=== PATIENT | female | born 1970 | race African-American/Black ===

== ENCOUNTER 2018-05-31 07:15 | Day surgery (SDC) | payer BC ==
[~2018-05-31] VITALS: Ht 167.6 cm; Wt 86.6 kg
[2018-05-31 07:35] VITALS: BP 131/77; PULSE 78; TEMP 97.7
[2018-05-31] MEDS ORDERED: SAXENDA6 MG/ML SQ (07:35)
[2018-05-31 09:00] VITALS: BP 126/73; PULSE 75; TEMP 98.1
[2018-05-31 09:15] VITALS: BP 117/75; PULSE 73
[2018-05-31 09:30] VITALS: BP 116/73; PULSE 66
== END 2018-05-31 09:45 | disposition home or self-care (01) ==
LOC: SDCO 07:15
DX: Z12.11 Encounter for screening for malignant neoplasm of colon (principal); K64.4 Residual hemorrhoidal skin tags; K92.1 Melena; F41.9 Anxiety disorder, unspecified; K59.09 Other constipation; K62.89 Other specified diseases of anus and rectum; E66.9 Obesity, unspecified; Z68.30 Body mass index [BMI] 30.0-30.9, adult; Z88.6 Allergy status to analgesic agent; Z90.710 Acquired absence of both cervix and uterus; Z80.0 Family history of malignant neoplasm of digestive organs
CPT/HCPCS: J2250; J2405; J3010; J7030